=== PATIENT | female | born 1995 | race African-American/Black ===

== ENCOUNTER 2024-08-09 12:41 | Emergency (ER) | payer SELFPAY ==
[2024-08-09 12:41] VITALS: BP 141/87; PULSE 101; RESP 16; TEMP 37; O2SAT 99
--- NOTE | 2024-08-09 12:52 | ED.GENADULT ---
HPI - General Adult General Chief complaint: Allergic Reaction Stated complaint: FACIAL SWELLING Time Seen by Provider: 08/09/24 12:49 Source: patient and family Mode of arrival: ambulatory History of Present Illness HPI narrative: 29 years old female came to the emergency room by private car because waking up this morning with swollen face, lips, eyelids and slight trouble swallowing. Patient reports that her symptoms improving slightly compared to early today currently no trouble swallowing or breathing. Patient report having similar symptoms After moving to an old house few months ago white cleaning the carpet, got better on Benadryl. patient denies any itching. Patient report been drinking quite a bed yesterday and showed laying down on the carpet. Patient denies any different about her alcohol yesterday compared to the past Patient's mother reported that she is allergic to carpet and does not have it at home Related Data Allergies Allergy/AdvReac Type Severity Reaction Status Date / Time No Known Allergies Allergy Verified 08/09/24 12:54 Review of Systems Review of Systems: All systems reviewed & are unremarkable except as noted in HPI and below PMFSH Social History Social History Smoking status: Current every day smoker Exam Narrative: General appearance: Well-developed, well-nourished Skin: Normal color Head: Normocephalic, nontraumatic Eyes: puffiness of the eyelids ENT: Oropharynx normal, ears normal, nose normal, slightly swelling lips, tongue within normal size Neck: Supple, nontender Chest and respiratory: Airway patent, no respiratory distress, no accessory muscle use Heart: Regular rate/rhythm Abdomen: Soft, nontender, no organomegaly, quiet bowel sounds Vascular: Normal peripheral pulses, normal capillary refill. 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 Patient's mother had history of allergy to carpeted No imaging or blood workup required at this time Patient received epinephrine IM, Benadryl p.o. and prednisone p.o.. with improvement, currently denying any trouble breathing or swallowing or itching. But feels itchy eyes. Discharged on prednisone and Zyrtec the pt was discharged to home.the pt,s condition upon discharge was fair,education was provided to the pt in reference to the final impression,discharge study results,treatment,prognosis and need for follow up . Vital Signs Vital Signs: Vital Signs Oxygen Delivery Room Air 08/09/24 12:40 Temperature 37.0 C 08/09/24 12:41 Pulse Rate 74 08/09/24 13:50 Respiratory Rate 18 08/09/24 13:50 Blood Pressure 115/79 08/09/24 13:50 Pulse Oximetry 99 08/09/24 13:50 Oxygen Delivery Room Air 08/09/24 13:50 Critical Care Time Critical Care Time Critical Care Time: No Discharge Plan Discharge Clinical Impression: Allergic reaction Patient Disposition: Home, Self-Care Condition: Improved Instructions: General Allergic Reaction (ED) Additional Instructions: Return if symp
[2024-08-09] MEDS: predniSONE 20 MG TABLET 60 MG PO (13:16)
[2024-08-09] MEDS: EPINEPHrine HCL INJ 1 MG/ML AMPUL 0.3 MG IM (13:16)
[2024-08-09] MEDS: diphenhydrAMINE HCl CAP 25 MG CAPSULE 50 MG PO (13:16)
[2024-08-09 13:50] VITALS: BP 115/79; PULSE 74; RESP 18; O2SAT 99
--- NOTE | 2024-08-09 14:06 | PC.NURSE ---
PT IS LYING ON STRETCHER WITH FRIEND AT BEDSIDE. NAD NOTED. PT DENIES ANY COMPLAINTS AT THIS TIME. PT IS WATCHING TV WITHOUT DISTRESS. NAD NOTED. WILL CONTINUE TO MONITOR.
[2024-08-09 14:35] VITALS: BP 111/71; PULSE 90; RESP 18; O2SAT 98
--- NOTE | 2024-08-09 14:35 | PC.NURSE ---
PT REPORTS SHE IS HUNGRY AND READY TO GO HOME.NAD NOTED.SWELLING HAS IMPROVED. FAMILY TO TRANSPORT.
== END 2024-08-09 14:35 | disposition home or self-care (01) ==
PROVIDERS: Emergency Provider Emergency Medicine
DX: T78.40XA Allergy, unspecified, initial encounter (principal); F17.200 Nicotine dependence, unspecified, uncomplicated
CPT/HCPCS: 96372; 99283; A9270; J0171; J7512